=== PATIENT | male | born 1980 | race Caucasian/White ===

== ENCOUNTER 2019-12-27 16:17 | Emergency (ER) | payer OTHER ==
[~2019-12-27] VITALS: Ht 182.9 cm; Wt 95.5 kg
[2019-12-27 16:29] VITALS: BP 124/88
== END 2019-12-27 18:17 | disposition left against medical advice (07) ==
LOC: ER 16:18
DX: L02.01 Cutaneous abscess of face (principal); Z53.21 Procedure and treatment not carried out due to patient leaving prior to being seen by health care provider

== ENCOUNTER 2019-12-29 21:20 | Emergency (ER) | payer OTHER ==
[~2019-12-29] VITALS: Ht 182.9 cm; Wt 83.5 kg
[2019-12-29 21:22] VITALS: BP 130/84
--- NOTE | 2019-12-29 22:36 | NUR ---
PT AWAITING ER PROVIDER. I WALKED BY HIS ROOM AND HE WAS SITTING ON [address]URNA[address]A QUIETLY AND WRITING IN A JOURNAL. APROX 1 MINUTE AFTER I PASSED BY HIS ROOM HE WAS WALKING OUT OF THE ROOM WITH ALL OF HIS THINGS AND RAPIDLY HEADED OUT OF THE ER. HE YELLED OUT "F THIS PLACE... YOUR A BUNCH OF FAGGOTS..." AND WAS MUMJBLING OTHER THINGS INAUDABLE. I ASKED IF HE WAS LEAVING AND HE SAID YES. I ASKED IF SOMETHING WAS WRONG OF IF SOMETHING HAPPEN AND HE DID NOT ANSWER. SECURITY CALLED TO ADMITTING PT WAS GETTING AGGITATED. PT RETURNED TO THE ROOM TO COLLECT HIS CELL PHONE, Earnest UMANA NP, ASKED IF HE WANTED TO BE SEEN AND HE SAID NO. SHE REPORTS THE PT TO BE CATAGORIZED ELOPING. SHANIA, GENERATION TECHNICIAN , PRESENT FOR EVENT.
== END 2019-12-29 22:50 | disposition left against medical advice (07) ==
LOC: ER 21:21
DX: L02.01 Cutaneous abscess of face (principal)
CPT/HCPCS: 99281

== ENCOUNTER 2020-03-11 21:30 | Emergency (ER) | payer OTHER ==
[~2020-03-11] VITALS: Ht 182.9 cm; Wt 102.4 kg
[2020-03-11 21:39] VITALS: BP 120/81
[2020-03-11] MEDS ORDERED: dexamethasone sod phosphate 10mg/ml inj IM STA (22:04)
[2020-03-11] MEDS ORDERED: triamcinolone acetonide 40mg/ml inj IM ONE (22:05)
== END 2020-03-11 22:18 | disposition home or self-care (01) ==
LOC: ER 21:30
DX: L23.7 Allergic contact dermatitis due to plants, except food (principal)
CPT/HCPCS: 96372; 99284; J1100; J3301

== ENCOUNTER 2020-06-30 16:15 | Emergency (ER) | payer OTHER ==
[~2020-06-30] VITALS: Ht 182.9 cm; Wt 105.0 kg
[2020-06-30 16:31] VITALS: BP 121/73
[2020-06-30] MEDS ORDERED: DOXY100T56 PO (18:19)
[2020-06-30] MEDS ORDERED: CLOT15CR35 TOP (18:19)
== END 2020-06-30 18:50 | disposition home or self-care (01) ==
LOC: ER 16:15
DX: L03.116 Cellulitis of left lower limb (principal); F17.200 Nicotine dependence, unspecified, uncomplicated; Z79.899 Other long term (current) drug therapy
CPT/HCPCS: 99283